=== PATIENT | male | born 1955 ===

== ENCOUNTER → 2023-09-13 09:50 | Outpatient (CLI) | payer MEDICARE, OTHER, SELFPAY ==
--- NOTE | 2023-09-13 19:22 | DI.NM.S_ITS ---
DATE OF SERVICE: 09/13/2023 PHARMACOLOGICAL PERFUSION STUDY INDICATION: Atrial flutter. RADIOPHARMACEUTICAL: A 26.4 millicurie technetium-99m Myoview IV was injected at stress and 12.5 millicurie technetium-99m Myoview IV was injected at rest. CARDIAC STRESS: The patient underwent IV Lexiscan perfusion study as per standard Lexiscan protocol under the supervision of an attending staff. Baseline blood pressure 115/90. Baseline rhythm, atrial flutter which appears to be typical with controlled ventricular rate. During stress, no new convincing ischemic changes. Patient remained in AFib. No significant ventricular arrhythmias. No chest discomfort. Had minimal dyspnea. No aminophylline was needed. RAW DATA: There is increased subdiaphragmatic activity. GATED STUDY: Stress LV ejection fraction 38% and resting LV ejection fraction 32% with global at least moderate hypokinesis. Resting end- diastolic volume 183 mL which is dilated. TID ratio 1.09 which is within normal limits. Lung/heart ratio 0.19 which is within normal limits. MYOCARDIAL PERFUSION SCAN: Stress supine, resting supine, and stress prone images were compared to each other. Stress supine and resting supine images revealed moderate-size, moderately decreased perfusion of inferior wall extending into the inferior apex. During stress prone images, inferior wall defect got significantly improved, however patient remained to have persistent inferior apical defect. No significant reversible ischemia. CONCLUSION: 1. No reversible ischemia. 2. Inferior wall defect improved during stress prone images suggestive of diaphragmatic tissue attenuation artifact with persistent inferior apical defect. This could be due to persistent tissue attenuation artifact however cannot rule out the possibility of small inferior apical infarction. LV dysfunction with a stress LVEF 38% and resting LVEF 32%. Global hypokinesis. The patient has underlying atrial flutter. Possibility of tachycardia induced cardiomyopathy is there. Correlate clinically and consider cardioversion or atrial flutter ablation. Consider cardiology evaluation. Discussed with MD Andreea Bone David - ADRIEN/melonie/ANSELMO doc#: [id number]/job#: [id number] dd: 09/13/2023 16:42:00 dt: 09/13/2023 18:58:00 DICTATING MD/COPIES TO: Joe Lucas MD; Anant Berg MD COPIES MNE: EMMA;
== END ==
LOC: NUCM 09:53
PROVIDERS: Family Provider Student in an Organized Health Care Education/Training Program; PCP Student in an Organized Health Care Education/Training Program; Referring Provider Student in an Organized Health Care Education/Training Program; Visit Provider Student in an Organized Health Care Education/Training Program
DX: I48.3 Typical atrial flutter (principal)
CPT/HCPCS: 78452; 93017; A9502; J2785